=== PATIENT | female | born 1990 | race Hispanic/Latino ===

== ENCOUNTER 2019-06-09 07:10 | Observation (INO) | payer BC, MEDICAID ==
[2019-06-08 13:39] LABS: BASOPHILS % (AUTO) 0.6 % (0.0-5.0); EOSINOPHILS % (AUTO) 1.6 % (0.0-8.0); HEMATOCRIT 37.1 % (36-48); LYMPHOCYTES % (AUTO) 22.8 % (21.0-51.0); MEAN CORPUSCULAR HEMOGLOBIN 28.3 pg (27.0-33.0); MEAN CORPUSCULAR HGB CONC 33.5 g/dL (32.0-36.0); MEAN CORPUSCULAR VOLUME 84.5 fL (79-99); MONOCYTES % (AUTO) 3.3 % (3.0-13.0); NEUTROPHILS % (AUTO) 71.7 % (40.0-77.0); PLATELET COUNT (AUTO) 268 K/uL (130-400); RED BLOOD CELL COUNT(AUTO) 4.39 MIL/uL (4.00-5.50); RED CELL DISTRIBUTION WIDTH 13.4 % (11.0-15.5); WHITE BLOOD COUNT (AUTO) 9.7 K/uL (4.8-10.8)
[2019-06-08 13:55] VITALS: BP 124/69
[~2019-06-09] VITALS: Ht 157.5 cm; Wt 89.1 kg
[2019-06-09] MEDS ORDERED: LACTATED RINGERS 1000ML 1,000 ML IV ONE (07:40)
[2019-06-09 08:00] VITALS: BP 125/82
[2019-06-09] MEDS ORDERED: SUCCINYLCHOLINE 200MG/10ML SYR ONE (08:52)
[2019-06-09] MEDS ORDERED: LIDOCAINE PF 2% 5ML ABBOJECT ONE (08:52)
[2019-06-09] MEDS ORDERED: PROPOFOL 10 MG/ML 20ML VIAL IV ONE (08:53)
[2019-06-09] MEDS ORDERED: ROCURONIUM 10MG/1ML SYR 10 MG/ML ML ONE (08:53)
[2019-06-09] MEDS ORDERED: FENTANYL CITRATE PF 50 MCG/1 ML 2ML VIAL ONE ×2 (08:53→09:46)
[2019-06-09] MEDS ORDERED: DEXAMETHASONE SOD PHOSPHATE 10MG/ML 1ML VIAL ONE (09:11)
[2019-06-09] MEDS ORDERED: ONDANSETRON HCL 4 MG/2 ML VIAL ONE (09:12)
[2019-06-09] MEDS ORDERED: CALDOLOR 800MG+NS 250ML 250 ML IV ONE (09:51)
[2019-06-09] MEDS ORDERED: OXYTOCIN 10 USP UNITS/ML ONE (09:55)
[2019-06-09] MEDS ORDERED: MISOPROSTOL 200 MCG TABLET ONE (09:58)
[2019-06-09] MEDS ORDERED: MEPERIDINE-PF 75 MG/ML SYG IM PRN (10:15)
[2019-06-09] MEDS ORDERED: BISACODYL 10 MG SUPP.RECT RC PRN (10:15)
[2019-06-09] MEDS ORDERED: DOCUSATE SODIUM 100 MG CAP PO PRN (10:15)
[2019-06-09] MEDS ORDERED: PROMETHAZINE HCL 25 MG/ML 1ML AMPULE IM PRN ×2 (10:15)
[2019-06-09] MEDS ORDERED: SIMETHICONE 80 MG TAB.CHEW PO PRN (10:15)
[2019-06-09] MEDS ORDERED: ACETAMINOPHEN-CODEINE 300/30MG TAB PO PRN (10:15)
[2019-06-09 11:30] VITALS: BP 115/75
[2019-06-09 16:25] VITALS: BP 99/55
[2019-06-09 19:10] VITALS: BP 98/60
[2019-06-09] MEDS: MISOPROSTOL 200 MCG TABLET PO SCH (20:24)
[2019-06-09] MEDS ORDERED: MEPERIDINE-PF 25 MG/ML SYG ONE (22:42)
[2019-06-09] MEDS ORDERED: MEPERIDINE-PF 50 MG/ML SYG ONE (22:42)
[2019-06-09 23:13] VITALS: BP 105/63
[2019-06-10] MEDS: MISOPROSTOL 200 MCG TABLET PO SCH ×3 (02:31→11:58)
[2019-06-10 03:13] VITALS: BP 107/54
--- NOTE | 2019-06-10 06:00 | NUR ---
NO BLOOD CLOTS OR TISSUE PASSED BY PT ALL NIGHT. Addendum: 06/10/19 at 0751 by ATIYA KENNEDY RN RN Amended: Links added.
[2019-06-10 06:33] LABS: HEMATOCRIT 28.1 % (36-48); MEAN CORPUSCULAR HEMOGLOBIN 28.4 pg (27.0-33.0); MEAN CORPUSCULAR HGB CONC 33.4 g/dL (32.0-36.0); MEAN CORPUSCULAR VOLUME 84.8 fL (79-99); PLATELET COUNT (AUTO) 244 K/uL (130-400); RED BLOOD CELL COUNT(AUTO) 3.31 MIL/uL (4.00-5.50); RED CELL DISTRIBUTION WIDTH 13.3 % (11.0-15.5); WHITE BLOOD COUNT (AUTO) 10.7 K/uL (4.8-10.8)
[2019-06-10 07:56] VITALS: BP 92/52
[2019-06-10] MEDS ORDERED: IBUPROFEN 800 MG TAB PO SCH (10:15)
--- NOTE | 2019-06-10 12:40 | NUR ---
DISCHARGE PT LEFT UNIT VIA WHEELCHAIR, ACCOMPANIED BY FAMILY. DENIED PAIN AND HAD NO COMPLAINTS. TRANSPORTED BY PERSONAL VEHICLE.
[2019-06-15] MEDS ORDERED: IBUP-2077 PO (18:05)
[2019-06-15] MEDS ORDERED: ACET1TAB12 PO (18:05)
== END 2019-06-10 12:40 | disposition home or self-care (01) ==
LOC: DAH 07:10 → DAHIP 07:11 → WSH 11:30
DX: O03.4 Incomplete spontaneous abortion without complication (principal); O02.0 Blighted ovum and nonhydatidiform mole; Z3A.10 10 weeks gestation of pregnancy
CPT/HCPCS: 36415 ×2; 59812; 76856; 85025; 85027; 86850; 86900; 86901; 88305; 96372; A4215; A4221; A4222; A4223; A4351; A4663; A6260; G0378 ×26; J0330; J1100; J1741; J2001; J2175 ×2; J2405; J2550; J2590; J2704; J3010 ×2; J7030; J7120 ×3

== ENCOUNTER 2019-06-16 09:12 | Day surgery (SDC) | payer BC, MEDICAID ==
[2019-06-15 17:43] LABS: EOSINOPHILS % (AUTO) 2.5 % (0.0-8.0); HEMATOCRIT 32.6 % (36-48); LYMPHOCYTES % (AUTO) 23.4 % (21.0-51.0); MEAN CORPUSCULAR HEMOGLOBIN 28.8 pg (27.0-33.0); MEAN CORPUSCULAR HGB CONC 34.1 g/dL (32.0-36.0); MEAN CORPUSCULAR VOLUME 84.5 fL (79-99); MONOCYTES % (AUTO) 4.4 % (3.0-13.0); NEUTROPHILS % (AUTO) 68.7 % (40.0-77.0); PLATELET COUNT (AUTO) 307 K/uL (130-400); RED BLOOD CELL COUNT(AUTO) 3.85 MIL/uL (4.00-5.50); RED CELL DISTRIBUTION WIDTH 13.4 % (11.0-15.5); WHITE BLOOD COUNT (AUTO) 10.1 K/uL (4.8-10.8)
[2019-06-15 17:58] VITALS: BP 110/60
[~2019-06-16] VITALS: Ht 157.5 cm; Wt 88.3 kg
[2019-06-16] VITALS (16 sets, daily range): BP systolic 91–137; BP diastolic 40–83
[~2019-06-16 09:12] MED LIST: ACET1TAB12 PO; IBUP-2077 PO; LACTATED RINGERS 1000ML 1,000 ML IV ONE
[2019-06-16] MEDS ORDERED: SUCCINYLCHOLINE 200MG/10ML SYR ONE (14:04)
[2019-06-16] MEDS ORDERED: FENTANYL CITRATE PF 50 MCG/1 ML 2ML VIAL ONE ×2 (14:08→14:23)
[2019-06-16] MEDS ORDERED: MIDAZOLAM HCL 1 MG/ML 2ML VIAL ONE (14:08)
[2019-06-16] MEDS ORDERED: PROPOFOL 10 MG/ML 20ML VIAL IV ONE (14:22)
[2019-06-16] MEDS ORDERED: DEXAMETHASONE SOD PHOSPHATE 10MG/ML 1ML VIAL ONE (14:30)
[2019-06-16] MEDS ORDERED: KETOROLAC TROMETHAMINE 30MG/ML ONE (14:31)
[2019-06-16] MEDS ORDERED: OXYTOCIN 10 USP UNITS/ML ONE (14:34)
--- NOTE | 2019-06-16 17:05 | NUR ---
Pt discharged home, tolerating small amounts of liquids, ambulating well. Denies any severe pain, nausea or dizziness. Pt with moderate amount of bright red bleeding s any significant clots. Pad changed just prior to discharge. Pt instructed to notify doctor if bleeding increased or any significant clots appeared. Pt reports having a burning sensation with her first void of 175 ccs. Pt instructed to drinks lots of fluids and to notify her doctor if bleeding sensation did not go away within 24 hours. Pt and family report no further questions at this time.
== END 2019-06-16 17:05 | disposition home or self-care (01) ==
LOC: DAH 09:12
DX: O03.4 Incomplete spontaneous abortion without complication (principal); Z90.49 Acquired absence of other specified parts of digestive tract; Z98.890 Other specified postprocedural states; Z79.899 Other long term (current) drug therapy
CPT/HCPCS: 36415; 59812; 85025; 88305; A4215; A4221; A4222; A4223; A4351; A4663; A6260; J0330; J1100; J1885; J2250; J2590; J2704; J3010 ×2; J7120 ×2

== ENCOUNTER 2020-09-12 11:00 | Inpatient (IN) | payer BC ==
[~2020-09-12] VITALS: Ht 157.5 cm; Wt 98.4 kg
[~2020-09-12 11:00] MED LIST changes: -LACTATED RINGERS 1000ML 1,000 ML IV ONE
[2020-09-20] MEDS ORDERED: CEFAZOLIN SODIUM 1 GM VIAL IVP PRN (05:30)
[2020-09-20 06:13] VITALS: BP 138/81
[2020-09-20 06:13] LABS: HEMATOCRIT 33.7 % (36-48); MEAN CORPUSCULAR HGB CONC 30.9 g/dL (32.0-36.0); MEAN CORPUSCULAR VOLUME 77.6 fL (79-99); PLATELET COUNT (AUTO) 295 K/uL (130-400); RED BLOOD CELL COUNT(AUTO) 4.34 MIL/uL (4.00-5.50); RED CELL DISTRIBUTION WIDTH 14.7 % (11.0-15.5); WHITE BLOOD COUNT (AUTO) 11.7 K/uL (4.8-10.8)
[2020-09-20] MEDS: LACTATED RINGERS 1000ML 1,000 ML IV SCH ×2 (06:27→06:36)
[2020-09-20] MEDS ORDERED: ONDANSETRON 4MG INJ ONE (07:08)
[2020-09-20] MEDS ORDERED: MORPHINE PF 100MG/10ML AMP IV ONE (07:08)
[2020-09-20] MEDS ORDERED: CEFAZOLIN SODIUM 1 GM VIAL IVP ONE (07:40)
[2020-09-20] MEDS ORDERED: GLYCOPYRROLATE 1 MG/5 ML SYRINGE ONE (07:43)
[2020-09-20] MEDS ORDERED: OXYTOCIN 10 USP UNITS/ML ONE (07:54)
[2020-09-20] MEDS ORDERED: MEPERIDINE-PF 75 MG/ML SYG IM PRN (08:45)
[2020-09-20] MEDS ORDERED: 0.9%NACL 10ML VIAL IVP PRN (08:45)
[2020-09-20] MEDS ORDERED: OXYTOCIN-LR 20 UNITS/1000 ML 1,000 ML IV PRN (08:45)
[2020-09-20] MEDS ORDERED: PROMETHAZINE HCL 25 MG/ML 1ML AMPULE IM PRN (08:45)
[2020-09-20] MEDS ORDERED: DiphenhydrAMINE HCL 50 MG/ML VIAL IVP PRN (09:00)
[2020-09-20] MEDS ORDERED: NALOXONE HCL 0.4 MG/1 ML ML IVP PRN (09:00)
[2020-09-20] MEDS ORDERED: EPHEDRINE SULFATE 50 MG/ML AMPULE IVP PRN (09:00)
[2020-09-20] MEDS ORDERED: ONDANSETRON 4MG INJ IVP PRN (09:00)
[2020-09-20 10:18] LABS: RAPID PLASMA REAGIN NONREACTIVE (NONREACTIVE)
[2020-09-20 10:22] VITALS: BP 133/76
[2020-09-20] MEDS ORDERED: MORPHINE 2 MG SYG ONE (12:44)
[2020-09-20] MEDS ORDERED: MORPHINE 2 MG SYG IVP PRN (12:45)
[2020-09-20 16:32] VITALS: BP 115/72
[2020-09-20] MEDS: DEXTROSE 5 %-0.45 % NACL 1,000 ML IV PRN (18:38)
[2020-09-20 19:49] VITALS: BP 120/72
[2020-09-20 23:42] VITALS: BP 100/65
[2020-09-21] MEDS: DEXTROSE 5 %-0.45 % NACL 1,000 ML IV PRN ×2 (02:10→07:52)
[2020-09-21 03:46] VITALS: BP 110/59
[2020-09-21 06:50] LABS: HEMATOCRIT 29.6 % (36-48); MEAN CORPUSCULAR HEMOGLOBIN 23.7 pg (27.0-33.0); MEAN CORPUSCULAR HGB CONC 30.7 g/dL (32.0-36.0); MEAN CORPUSCULAR VOLUME 77.1 fL (79-99); RED BLOOD CELL COUNT(AUTO) 3.84 MIL/uL (4.00-5.50); WHITE BLOOD COUNT (AUTO) 9.3 K/uL (4.8-10.8)
[2020-09-21 07:34] VITALS: BP 115/63
[2020-09-21 08:14] LABS: HEPATITIS Bs ANTIGEN SCREEN P Negative (Negative)
[2020-09-21] MEDS ORDERED: IBUPROFEN 600 MG TABLET PO PRN (08:15)
[2020-09-21] MEDS ORDERED: ACETAMINOPHEN 500 MG TABLET PO PRN (08:15)
[2020-09-21] MEDS ORDERED: HYDROCODONE/ACETAMINOPHEN 5/325 MG TAB PO PRN (08:15)
[2020-09-21] MEDS ORDERED: SIMETHICONE 80 MG TAB.CHEW PO PRN (08:15)
[2020-09-21] MEDS ORDERED: LANOLIN 30GM OINTMENT TP PRN (08:15)
[2020-09-21] MEDS ORDERED: ACETAMINOPHEN WITH CODEINE 1 TAB TAB PO PRN (08:15)
[2020-09-21] MEDS ORDERED: BISACODYL 10 MG SUPP.RECT RC PRN (08:15)
[2020-09-21] MEDS ORDERED: IBUPROFEN 800 MG TAB PO SCH (08:45)
[2020-09-21] MEDS ORDERED: DOCUSATE SODIUM 100 MG CAP PO SCH (09:00)
[2020-09-21 11:27] VITALS: BP 130/86
[2020-09-21] MEDS: IBUPROFEN 100 MG/5 ML SUSP UDCUP PO SCH ×2 (15:51→21:40)
[2020-09-21 15:54] VITALS: BP 122/73
[2020-09-21 19:50] VITALS: BP 118/64
[2020-09-21] MEDS: DOCUSATE NA 100MG/10ML UDCUP PO SCH (21:38)
[2020-09-21] MEDS: LACTATED RINGERS 1000ML 1,000 ML IV SCH ×3 (21:55→21:57)
[2020-09-21 23:04] VITALS: BP 114/64
[2020-09-22 03:12] VITALS: BP 123/72
[2020-09-22] MEDS: IBUPROFEN 100 MG/5 ML SUSP UDCUP PO SCH ×4 (03:31→16:37)
[2020-09-22] MEDS: LACTATED RINGERS 1000ML 1,000 ML IV SCH (05:32)
[2020-09-22 07:30] VITALS: BP 127/84
[2020-09-22] MEDS: DOCUSATE NA 100MG/10ML UDCUP PO SCH (09:17)
[2020-09-22 11:15] VITALS: BP 121/65
[2020-09-22 15:45] VITALS: BP 119/63
== END 2020-09-22 17:55 | disposition home or self-care (01) | DRG 785 ==
LOC: LDH 09-20 05:22 → WSH 09-20 10:20
PROVIDERS: ADMIT Specialist; ATTEND Specialist
PROC: 0UB70ZZ Excision of Bilateral Fallopian Tubes, Open Approach (ICD-10-PCS; 2020-09-20)
PROC: 10D00Z1 Extraction of Products of Conception, Low, Open Approach (ICD-10-PCS; principal; 2020-09-20 07:30)
DX: O34.211 Maternal care for low transverse scar from previous cesarean delivery (principal); O99.214 Obesity complicating childbirth; E66.01 Morbid (severe) obesity due to excess calories; Z20.822 Contact with and (suspected) exposure to COVID-19; Z3A.39 39 weeks gestation of pregnancy; Z37.0 Single live birth; Z30.2 Encounter for sterilization; Z90.49 Acquired absence of other specified parts of digestive tract
CPT/HCPCS: 36415; 59510; 85027; 86592; 86701; 86850; 86900; 86901; 87340; 87390; A4344; G0378; J0690; J2175; J2274; J2405; J2550; J2590; J3490; J7120; U0003